=== PATIENT | female | born 1965 | race Caucasian/White ===

== ENCOUNTER → 2016-03-29 19:15 | Outpatient (CLI) | payer MEDICARE, MEDICAID ==
[2012-06-08 03:24] VITALS: BMI 34.5
[2016-03-29 19:51] LABS: AMYLASE - SERUM 299 U/L (25-115); LIPASE 191 U/L (73-393)
== END | disposition home or self-care (01) ==
LOC: D.LABREF 19:15
PROVIDERS: Family Medicine
DX: R10.11 Right upper quadrant pain (principal); N39.0 Urinary tract infection, site not specified

== ENCOUNTER 2016-06-17 12:08 | Emergency (ER) | payer MEDICARE ==
[2012-06-08 03:24] VITALS: BMI 34.5
== END 2016-06-17 14:35 | disposition home or self-care (01) ==
LOC: D.ER 12:08
DX: S93.401A Sprain of unspecified ligament of right ankle, initial encounter (principal); X58.XXXA Exposure to other specified factors, initial encounter; Y93.89 Activity, other specified; Y92.410 Unspecified street and highway as the place of occurrence of the external cause; F17.200 Nicotine dependence, unspecified, uncomplicated

== ENCOUNTER 2017-03-09 22:09 | Emergency (ER) | payer MEDICARE, MEDICAID ==
[2012-06-08 03:24] VITALS: BMI 34.5
[2017-03-09 23:05] LABS: BASOPHILS 0.3 % (0-2); EOSINOPHILS 7.7 % (0-7); HEMATOCRIT 36.9 % (36.0-48.0); HEMOGLOBIN 12.5 g/dL (12-16); LYMPHOCYTES 35.1 % (15-50); MCH 31.1 pg (26.0-34.0); MCHC 33.9 g/dL (31.0-37.0); MCV 91.8 fL (80.0-100.0); MEAN PLATELET VOLUME 9.7 fL (7.4-10.4); MONOCYTES 4.1 % (2-11); NEUTROPHILS 52.8 % (40-80); RBC 4.02 10x6/uL (4.00-5.40); RDW 15.3 % (11.5-14.5); WBC 5.8 10x3/uL (4.8-10.8)
[2017-03-09 23:14] LABS: PLATELET COUNT 305 10x3/uL (130-400)
[2017-03-09 23:23] LABS: ALBUMIN 3.1 g/dL (3.4-5.0); ANION GAP 15.1 mmol/L (8-16); BILIRUBIN - TOTAL 0.21 mg/dL (0.2-1.3); CALCIUM 8.8 mg/dL (8.5-10.1); CARBON DIOXIDE 24.9 mmol/L (21.0-32.0); CREATININE - SERUM 1.2 mg/dL (0.6-1.3); PROTEIN - SERUM 6.5 g/dL (6.4-8.2)
== END 2017-03-09 23:57 | disposition home or self-care (01) ==
LOC: D.ER 22:09
PROVIDERS: Family Medicine
DX: Z86.59 Personal history of other mental and behavioral disorders (principal)

== ENCOUNTER 2017-03-13 17:41 | Emergency (ER) | payer MEDICARE, MEDICAID ==
[2012-06-08 03:24] VITALS: BMI 34.5
== END 2017-03-13 21:58 | disposition home or self-care (01) ==
LOC: D.ER 17:41
DX: S39.92XA Unspecified injury of lower back, initial encounter (principal); W19.XXXA Unspecified fall, initial encounter; Y93.89 Activity, other specified; Y92.019 Unspecified place in single-family (private) house as the place of occurrence of the external cause; F17.200 Nicotine dependence, unspecified, uncomplicated

== ENCOUNTER 2017-05-01 16:12 | Emergency (ER) | payer MEDICARE, MEDICAID ==
[2012-06-08 03:24] VITALS: BMI 34.5
[2017-05-01 16:46] LABS: BASOPHILS 0.6 % (0-2); EOSINOPHILS 5.9 % (0-7); HEMATOCRIT 34.7 % (36.0-48.0); LYMPHOCYTES 29.4 % (15-50); MCH 31.1 pg (26.0-34.0); MCHC 34.6 g/dL (31.0-37.0); MCV 89.9 fL (80.0-100.0); MEAN PLATELET VOLUME 10.3 fL (7.4-10.4); MONOCYTES 7.2 % (2-11); NEUTROPHILS 56.9 % (40-80); PLATELET COUNT 320 10x3/uL (130-400); RBC 3.86 10x6/uL (4.00-5.40); RDW 14.3 % (11.5-14.5); WBC 5.4 10x3/uL (4.8-10.8)
[2017-05-01 17:08] LABS: ALBUMIN 3.2 g/dL (3.4-5.0); ANION GAP 16.4 mmol/L (8-16); BILIRUBIN - TOTAL 0.21 mg/dL (0.2-1.3); CALCIUM 9.3 mg/dL (8.5-10.1); CARBON DIOXIDE 20.1 mmol/L (21.0-32.0); CREATININE - SERUM 1.2 mg/dL (0.6-1.3); POTASSIUM - SERUM 3.5 mmol/L (3.5-5.1); PROTEIN - SERUM 7.4 g/dL (6.4-8.2)
[2017-05-01 18:38] LABS: APPEARANCE CLEAR (CLEAR); BILIRUBIN NEGATIVE (NEGATIVE); COLOR YELLOW (YELLOW); GLUCOSE NEGATIVE (NEGATIVE); KETONE NEGATIVE (NEGATIVE); NITRITE POSITIVE (NEGATIVE); PROTEIN NEGATIVE (NEGATIVE); UROBILINOGEN NORMAL (NORMAL)
[2017-05-01 18:39] LABS: BACTERIA MANY /hpf (NONE SEEN); EPITHELIAL CELLS 0-5 /hpf (0-5); RED CELLS - URINE 0-5 /hpf (0-5)
[2017-05-01 18:44] LABS: UDS - AMPHET POSITIVE QUAL (NEGATIVE); UDS - BARB NEGATIVE QUAL (NEGATIVE); UDS - BENZO NEGATIVE QUAL (NEGATIVE); UDS - COCAINE POSITIVE QUAL (NEGATIVE); UDS - OPIATE NEGATIVE QUAL (NEGATIVE); UDS - PCP NEGATIVE QUAL (NEGATIVE); UDS - THC NEGATIVE QUAL (NEGATIVE)
== END 2017-05-02 08:08 | disposition home or self-care (01) ==
LOC: D.ER 16:12
PROVIDERS: Emergency Medicine
DX: F41.9 Anxiety disorder, unspecified (principal); F23 Brief psychotic disorder; F15.10 Other stimulant abuse, uncomplicated; F14.10 Cocaine abuse, uncomplicated; F17.200 Nicotine dependence, unspecified, uncomplicated

== ENCOUNTER 2017-11-15 00:21 | Emergency (ER) | payer MEDICARE, MEDICAID ==
[~2017-11-15] VITALS: Ht 170.2 cm; Wt 83.6 kg
[2017-11-15 00:24] VITALS: Ht 170.2 cm; Wt 83.6 kg
[2017-11-15 00:44] LABS: BASOPHILS 0.5 % (0-2); EOSINOPHILS 8.4 % (0-7); HEMATOCRIT 34.9 % (36.0-48.0); HEMOGLOBIN 11.7 g/dL (12-16); IMMATURE GRANULOCYTES 0.3 % (0-5); LYMPHOCYTES 45.2 % (15-50); MCH 31.2 pg (26.0-34.0); MCHC 33.5 g/dL (31.0-37.0); MCV 93.1 fL (80.0-100.0); MEAN PLATELET VOLUME 10.1 fL (7.4-10.4); MONOCYTES 11.2 % (2-11); NEUTROPHILS 34.4 % (40-80); RBC 3.75 10x6/uL (4.00-5.40); WBC 3.9 10x3/uL (4.8-10.8)
[2017-11-15 00:45] LABS: PLATELET COUNT 225 10x3/uL (130-400)
[2017-11-15 01:00] LABS: ALBUMIN 2.5 g/dL (3.4-5.0); ALKALINE PHOSPHATASE 100 U/L (46-116); ALT (SGPT) 87 U/L (10-68); BILIRUBIN - TOTAL 0.16 mg/dL (0.2-1.3); CALC OSMOLALITY 288 mosm/kg (275-300); CALCIUM 8.4 mg/dL (8.5-10.1); CARBON DIOXIDE 25.7 mmol/L (21.0-32.0); CHLORIDE - SERUM 109 mmol/L (98-107); CREATININE - SERUM 1.7 mg/dL (0.6-1.3); GLUCOSE 123 mg/dL (74-106); POTASSIUM - SERUM 3.8 mmol/L (3.5-5.1); PROTEIN - SERUM 5.9 g/dL (6.4-8.2); SODIUM 143 mmol/L (136-145); UREA NITROGEN 22 mg/dL (7-18); eGFR NON AFRICAN AMERICAN 34 mL/min (90-120)
[2017-11-15 01:09] LABS: CKMB 1.2 U/L (0.0-3.6); CREATINE KINASE 38 UL (21-215)
[2017-11-15 01:10] LABS: TROPONIN-I < 0.017 ng/mL (0.000-0.060)
[2017-11-15 02:54] LABS: UDS - AMPHET POSITIVE QUAL (NEGATIVE); UDS - BARB NEGATIVE QUAL (NEGATIVE); UDS - BENZO NEGATIVE QUAL (NEGATIVE); UDS - COCAINE NEGATIVE QUAL (NEGATIVE); UDS - OPIATE NEGATIVE QUAL (NEGATIVE); UDS - PCP NEGATIVE QUAL (NEGATIVE); UDS - THC NEGATIVE QUAL (NEGATIVE)
[2017-11-15 02:57] LABS: APPEARANCE CLOUDY (CLEAR); COLOR YELLOW (YELLOW); NITRITE NEGATIVE (NEGATIVE)
[2017-11-15 02:58] LABS: BACTERIA MANY /hpf (NONE SEEN); BILIRUBIN NEGATIVE (NEGATIVE); EPITHELIAL CELLS RARE /hpf (0-5); GLUCOSE NEGATIVE (NEGATIVE); KETONE SMALL mg/dL (NEGATIVE); PROTEIN TRACE mg/dL (NEGATIVE); UROBILINOGEN NORMAL (NORMAL); WHITE CELLS - URINE >50 /hpf (0-5)
[2017-11-15 03:35] VITALS: BP 111/47
== END 2017-11-15 03:36 | disposition home or self-care (01) ==
LOC: D.ER 00:21
PROVIDERS: Emergency Medicine
DX: R53.83 Other fatigue (principal); R53.1 Weakness; R06.02 Shortness of breath; F17.200 Nicotine dependence, unspecified, uncomplicated

== ENCOUNTER 2018-12-01 22:10 | Inpatient (IN) | payer MEDICARE, MEDICAID ==
[~2018-12-01] VITALS: Ht 170.2 cm; Wt 88.7 kg
[2018-12-01 23:03] VITALS: BP 171/81
[2018-12-01 23:16] LABS: BASOPHILS 0.6 % (0-2); EOSINOPHILS 7.8 % (0-7); HEMATOCRIT 37.9 % (36.0-48.0); HEMOGLOBIN 12.5 g/dL (12-16); LYMPHOCYTES 18.4 % (15-50); MCH 30.3 pg (26.0-34.0); MCV 91.8 fL (80.0-100.0); MEAN PLATELET VOLUME 10.6 fL (7.4-10.4); MONOCYTES 6.8 % (2-11); NEUTROPHILS 66.4 % (40-80); RBC 4.13 10x6/uL (4.00-5.40); RDW 13.2 % (11.5-14.5); WBC 5.2 10x3/uL (4.8-10.8)
[2018-12-01 23:21] LABS: PLATELET COUNT 292 10x3/uL (130-400)
[2018-12-01 23:29] LABS: PROTIME 12.7 SECONDS (11.6-15.0)
[2018-12-01 23:29] LABS: UDS - AMPHET POSITIVE QUAL (NEGATIVE); UDS - BARB NEGATIVE QUAL (NEGATIVE); UDS - BENZO NEGATIVE QUAL (NEGATIVE); UDS - COCAINE NEGATIVE QUAL (NEGATIVE); UDS - OPIATE POSITIVE QUAL (NEGATIVE); UDS - PCP NEGATIVE QUAL (NEGATIVE); UDS - THC NEGATIVE QUAL (NEGATIVE)
[2018-12-01 23:30] LABS: APTT 36.1 SECONDS (22.8-39.4)
[2018-12-01 23:32] LABS: APPEARANCE CLEAR (CLEAR); BILIRUBIN NEGATIVE (NEGATIVE); COLOR YELLOW (YELLOW); GLUCOSE NEGATIVE (NEGATIVE); KETONE NEGATIVE (NEGATIVE); NITRITE NEGATIVE (NEGATIVE); PROTEIN NEGATIVE (NEGATIVE); UROBILINOGEN NORMAL (NORMAL)
--- NOTE | 2018-12-01 23:32 | NUR ---
PT MOVED TO T2. PT'S SPOUSE CALLED AND STATES IS "STUCK ON THE OTHER SIDE OF [place], BUT A FRIEND TOLD ME SHE TOOK A LOT OF BACLOFEN."
[2018-12-01 23:33] LABS: BACTERIA FEW /hpf (NEGATIVE); CALCIUM OXALATE CRYSTALS 0-5 /hpf (NONE SEEN); EPITHELIAL CELLS 0-5 /hpf (0-5); RED CELLS - URINE 0-5 /hpf (0-5)
--- NOTE | 2018-12-01 23:35 | NUR ---
SPOKE TO BROOK AT [facility]. INSTRUCTED TO ORDER TOX SCREENS WITH SYMPTOMATIC AND SUPPORTIVE CARE FOR BACLOFEN.
--- NOTE | 2018-12-01 23:35 | NUR ---
PT INTUBATED 7.5 ET 23 @[facility]IP.
[2018-12-01 23:39] LABS: ALBUMIN 3.2 g/dL (3.4-5.0); ALKALINE PHOSPHATASE 141 U/L (46-116); ALT (SGPT) 48 U/L (10-68); BILIRUBIN - TOTAL 0.33 mg/dL (0.2-1.3); CALC OSMOLALITY 283 mosm/kg (275-300); CALCIUM 8.9 mg/dL (8.5-10.1); CARBON DIOXIDE 29.2 mmol/L (21.0-32.0); CHLORIDE - SERUM 106 mmol/L (98-107); CKMB 3.4 U/L (0.0-3.6); CREATINE KINASE 156 UL (21-215); CREATININE - SERUM 1.2 mg/dL (0.6-1.3); GLUCOSE 146 mg/dL (74-106); MAGNESIUM - SERUM 1.8 mg/dL (1.8-2.4); PROTEIN - SERUM 6.7 g/dL (6.4-8.2); SODIUM 141 mmol/L (136-145); THYROID STIMULATING HORMONE 1.36 uIU/mL (0.36-3.74); TROPONIN-I < 0.017 ng/mL (0.000-0.060); UREA NITROGEN 13 mg/dL (7-18); eGFR NON AFRICAN AMERICAN 50 mL/min (90-120)
[2018-12-02] VITALS (29 sets, daily range): BP systolic 97–204; BP diastolic 52–124; Ht 170.2 cm; Wt 88.7 kg
[2018-12-02 00:21] LABS: HCG URINE NEGATIVE (NEGATIVE)
--- NOTE | 2018-12-02 00:35 | NUR ---
PT RECIEVED FROM ED VIA STRETCHER. TRANSFERED TO ICU BED 2307. MONITOR EQUIP ESTABLISHED. HYPERTENSIVE. VENT PER ETT. NG TUBE REMOVED DUE TO BEING DISPLACED. PIV L FOREARM WITH NS AND PROPOFOL INFUSING.
--- NOTE | 2018-12-02 03:55 | NUR ---
RECIEVED CALL FROM [facility]. UPDATE GIVEN.
[2018-12-02 05:18] LABS: BASOPHILS 0.2 % (0-2); EOSINOPHILS 3.8 % (0-7); HEMATOCRIT 37.9 % (36.0-48.0); HEMOGLOBIN 12.6 g/dL (12-16); IMMATURE GRANULOCYTES 0.2 % (0-5); LYMPHOCYTES 24.3 % (15-50); MCH 30.3 pg (26.0-34.0); MCHC 33.2 g/dL (31.0-37.0); MCV 91.1 fL (80.0-100.0); MEAN PLATELET VOLUME 10.8 fL (7.4-10.4); MONOCYTES 6.8 % (2-11); NEUTROPHILS 64.7 % (40-80); PLATELET COUNT 305 10x3/uL (130-400); RBC 4.16 10x6/uL (4.00-5.40); RDW 13.5 % (11.5-14.5); WBC 4.7 10x3/uL (4.8-10.8)
[2018-12-02 05:43] LABS: ALBUMIN 2.9 g/dL (3.4-5.0); ANION GAP 10.7 mmol/L (8-16); BILIRUBIN - TOTAL 0.38 mg/dL (0.2-1.3); CALCIUM 8.8 mg/dL (8.5-10.1); CARBON DIOXIDE 25.2 mmol/L (21.0-32.0); MAGNESIUM - SERUM 1.8 mg/dL (1.8-2.4); PHOSPHOROUS 2.6 mg/dL (2.5-4.9); PROTEIN - SERUM 6.2 g/dL (6.4-8.2)
[2018-12-02 05:47] LABS: POTASSIUM - SERUM 3.9 mmol/L (3.5-5.1)
--- NOTE | 2018-12-02 06:15 | NUR ---
PT BATHED AND LINEN CHANGED.
--- NOTE | 2018-12-02 07:30 | NUR ---
REPORT RECEIVED. PT ON VENT. SETTINGS PER RT. PT HAS OGT TO LIS. KENDALL IN PLACE. PT HAS AN IV IN HER RIGHT WRIST AND LEFT FOREARM. PROPOFOL AND 1/2NS INFUSING. HEAD TO TOE ASSESSMENT PERFORMED. VSS. WILL CONTINUE TO MONITOR.
--- NOTE | 2018-12-02 09:40 | NUR ---
SEDATION TURNED OFF PER DR MONTELONGO. WILL MONITOR. PT DIDN'T RESPOND TO STERNAL RUB.
--- NOTE | 2018-12-02 11:00 | NUR ---
PT OFF SEDATION. NOT RESPONDING TO STERNAL RUB. SEDATION TURNED OFF EARLIER. NOT RESTARTED. REASSESSMENT DONE. PUPILS STILL FIXED. VSS. WILL CONTINUE TO MONITOR.
--- NOTE | 2018-12-02 13:18 | NUR ---
UNABLE TO PROVIDE PT HISTORY. ONLY ABLE TO SAY THAT PT HAS A HISTORY OF REFLUX AND DEPRESSION. UNABLE TO TELL ME WHAT MEDICATIONS PT USES. SAYS THEY USE [facility].
--- NOTE | 2018-12-02 14:45 | NUR ---
CHG BATH GIVEN TO PT. FAN IN ROOM. HYDRALAZINE GIVEN PER PARAMETERS FOR HIGH BP. WILL MONITOR.
--- NOTE | 2018-12-02 15:30 | NUR ---
REASSESSMENT COMPLETED. VSS.
--- NOTE | 2018-12-02 17:03 | NUR ---
CALLED DR ROSE ABOUT PT'S BP STAYING ELEVATED AND 10MG DOSE OF HYDRALAZINE. HE STATED TO MAKE SURE WITH PHARMACY WE COULD GIVE HIGHER DOSE NOW. CALLING PHARMACY NOW.
--- NOTE | 2018-12-02 18:50 | NUR ---
DR ROSE NOTIFIED OF PT WAKING UP AGGITATED, COMBATIVE AND UNABLE TO REORIENT. PROPOFOL GTT RESTARTED. PT REMAINS ON VENTILATOR AND RESTRAINED.
--- NOTE | 2018-12-02 22:00 | NUR ---
PT AWAKENED SUDDENLY AND IS PULLING AT LINES AND ATTEMPTING TO GET OOB. PROPOFOL INCREASED.
[2018-12-03] VITALS (24 sets, daily range): BP systolic 118–175; BP diastolic 55–100
--- NOTE | 2018-12-03 03:30 | NUR ---
PT BATHED AND COMPLETE LINEN CHANGE. TOLERATED WELL
[2018-12-03 04:07] LABS: BASOPHILS 0.1 % (0-2); EOSINOPHILS 1.9 % (0-7); HEMATOCRIT 42.2 % (36.0-48.0); HEMOGLOBIN 13.8 g/dL (12-16); IMMATURE GRANULOCYTES 0.1 % (0-5); LYMPHOCYTES 12.4 % (15-50); MCH 30.2 pg (26.0-34.0); MCHC 32.7 g/dL (31.0-37.0); MCV 92.3 fL (80.0-100.0); MEAN PLATELET VOLUME 10.7 fL (7.4-10.4); MONOCYTES 5.8 % (2-11); NEUTROPHILS 79.7 % (40-80); PLATELET COUNT 316 10x3/uL (130-400); RBC 4.57 10x6/uL (4.00-5.40); RDW 14.1 % (11.5-14.5)
[2018-12-03 04:12] LABS: WBC 8.8 10x3/uL (4.8-10.8)
[2018-12-03 04:24] LABS: ALBUMIN 2.8 g/dL (3.4-5.0); BILIRUBIN - TOTAL 0.36 mg/dL (0.2-1.3); CALCIUM 9.2 mg/dL (8.5-10.1); CARBON DIOXIDE 25.7 mmol/L (21.0-32.0); MAGNESIUM - SERUM 1.7 mg/dL (1.8-2.4); POTASSIUM - SERUM 3.7 mmol/L (3.5-5.1); PROTEIN - SERUM 6.4 g/dL (6.4-8.2)
[2018-12-03 04:27] LABS: PHOSPHOROUS 3.6 mg/dL (2.5-4.9)
--- NOTE | 2018-12-03 07:30 | NUR ---
REPORT RECEIVED. PT ON VENT, PER RT SETTINGS. HAD OGT. PT HAS KENDALL. SHE IS IN RESTRAINTS. SHE HAS A LEFT FOREARM IV WITH 1/2NS AND PROPOFOL INFUSING. WHEN SEDATION IS TURNED DOWN, PT STARTS FIGHTING HER RESTRAINTS AND RAISES HER LEGS AND KICKS. ASSESSMENT DONE AND DOCUMENTED. VSS. WILL CONTINUE TO MONITOR.
--- NOTE | 2018-12-03 09:28 | NUR ---
PT AWAKE AND FIGHTING RESTRAINTS. KICKING LEGS IN AIR. REPOSITIONED IN BED. BED ALARM ON.
--- NOTE | 2018-12-03 09:47 | NUR ---
NUTRITION F/U CHART REVIEWED. PT REMAINS ON VENT. WILL CONTINUE TO MONITOR PT PROGRESS, PROVIDE DIET WHEN ORDERED OR ASSIST WITH NUTRITION SUPPORT IF NEEDED. RD FOLLOWING
--- NOTE | 2018-12-03 11:00 | NUR ---
DR MONTELONGO ROUNDED ON PT. WOKE PT. PT STARTED KICKING. STATED HE WOULD BE ORDERING VERSED TO HELP KEEP HER CALM WHERE SHE ISN'T KICKING AND FIGHTING THE VENT. WILL FOLLOW UP.
--- NOTE | 2018-12-03 11:30 | NUR ---
PT EXTUBATED. RESTRAINTS RELEASED. PT INSTRUCTED TO LEAVE NG TUBE ALONE. WOULD PULL IF PASS SWALLOW EVAL. VSS. WILL CONTINUE TO MONITOR.
[2018-12-03 11:39] LABS: APPEARANCE CLEAR (CLEAR); BILIRUBIN NEGATIVE (NEGATIVE); COLOR YELLOW (YELLOW); GLUCOSE NEGATIVE (NEGATIVE); KETONE NEGATIVE (NEGATIVE); NITRITE NEGATIVE (NEGATIVE); PROTEIN NEGATIVE (NEGATIVE); UROBILINOGEN NORMAL (NORMAL)
[2018-12-03 11:40] LABS: BACTERIA FEW /hpf (NEGATIVE); EPITHELIAL CELLS NSEEN /hpf (0-5); RED CELLS - URINE 0-5 /hpf (0-5); WHITE CELLS - URINE 0-5 /hpf (NEGATIVE)
--- NOTE | 2018-12-03 13:41 | NUR ---
PT RESTING QUIETLY. VSS. WILL CONTINUE TO MONITOR.
--- NOTE | 2018-12-03 17:30 | NUR ---
VSS. PT REPOSITIONED. ORAL CARE DONE.
--- NOTE | 2018-12-03 17:41 | MORECARE ---
CASE MANAGEMENT DISCHARGE SUMMARY PATIENT: RUDDY LUDWIG UNIT: [id number] ADM DATE: 12/01/18 AGE: 53 : 69 SEX: F ROOM/BED: D.2307 AUTHOR: ROBINA BARDALES PHYSICIAN: REFERRING PHYSICIAN: TERESA NUÑEZ MD DATE OF SERVICE: 12/03/18 Discharge Plan Patient Name: RUDDY LUDWIG [facility] [facility] 1965 Planned Disposition: Home Anticipated Discharge Date: Discharge Date: Expected LOS: Initial Reviewer: [email or web address] Initial Review Date: 12/03/2018 Generated: 12/03/18 6:41 pm DCPIA - Discharge Planning Initial Assessment Updated by [email or web address]: Mara Coleman on 12/03/18 5:40 pm * Is the patient Alert and Oriented? No * How many steps to enter\exit or inside your home? 4-20 * PCP NO PCP - PHYSICIAN MOST FAMILAR WITH PATIENT IS DR. NOLASCO @ [facility] * Pharmacy [place] * Preadmission Environment Home with Family * ADLs Independent * Equipment None * List name and contact numbers for known caregivers / representatives who currently or will assist patient after discharge: SHAAN MONET - SPOUSE - [phone] * Community resources currently utilized None * Additional services required to return to the preadmission environment? No * Can the patient safely return to the preadmission environment? Yes * Has this patient been hospitalized within the prior 30 days at any hospital? No Patient Name: RUDDY LUDWIG Page [phone] at 1741 All edits/amendments must be made on the electronic document DICTATION DATE: 12/03/181740 L TACKER: TERI 12/03/181740 RPT#: [id number] DC DATE: STATUS: ADM IN [facility] [address] [place] [address] END OF REPORT
--- NOTE | 2018-12-03 17:49 | MORECARE ---
CASE MANAGEMENT DISCHARGE SUMMARY PATIENT: RUDDY LUDWIG UNIT: [id number] ADM DATE: 12/01/18 AGE: 53 : 69 SEX: F ROOM/BED: D.9862 AUTHOR: JEFFY,DOC PHYSICIAN: REFERRING PHYSICIAN: TERESA NUÑEZ MD DATE OF SERVICE: 12/03/18 Discharge Plan Patient Name: RUDDY LUDWIG Facility: [facility]:[place] : 1965 Planned Disposition: Home Anticipated Discharge Date: Discharge Date: Expected LOS: Initial Reviewer: [email or web address] Initial Review Date: 12/03/2018 Generated: 12/03/18 6:49 pm Comments DCP- Discharge Planning Updated by [email or web address]: Mara Coleman on 12/03/18 4:[address] Patient Name: RUDDY LUDWIG Admission Status: ER Accout number: [id number] Admission Date: 12-01-2018 : 1965 Admission Diagnosis:UNSPECIFIED COMA Attending: TERESA NUÑEZ Current LOS: 2 Anticipated DC Date: Planned Disposition: Home Primary Insurance: MEDICARE A & B Discharge Planning Comments: CM attempted to met with patient to complete initial dc planning assessment. Patient is currently on vent sedated. CM spoke with patient's spouse Oneal. CM educated Oneal on the CM role and verbal consent given by patient to complete assessment. Patient lives at home with her where she is independent with her care. At discharge patient plans to return home and feels this is a safe discharge. Oneal states that the patient has a history of psych issues and has been seen by Dr. Nolasco @ [facility]. CM discussed availability of home health, rehab services, and medical equipment. Family will transport patient home upon discharge. Oneal denied any known discharge needs at this time. CM will continue to follow and will assist as needed with dc plans/needs. Parish Nurse: Mara Coleman DCPIA - Discharge Planning Initial Assessment Updated by [email or web address]: Mara Coleman on 12/03/18 5:40 pm * Is the patient Alert and Oriented? No * How many steps to enter\exit or inside your home? 4-20 * PCP NO PCP - PHYSICIAN MOST FAMILAR WITH PATIENT IS DR. NOLASCO @ [facility] * Pharmacy [place] * Preadmission Environment Home with Family * ADLs Independent * Equipment None * List name and contact numbers for known caregivers / representatives who currently or will assist patient after discharge: SHAAN MONET - [facility] - [phone] * Community resources currently utilized None * Additional services required to return to the preadmission environment? No * Can the patient safely return to the preadmission environment? Yes * Has this patient been hospitalized within the prior 30 days at any hospital? No Last DP export: 12/03/18 4:41 p Patient Name: RUDDY LUDWIG Page 31634 at 1749 All edits/amendments must be made on the electronic document DICTATION DATE: 12/03/181748 SUPERVISOR NATURAL GAS PLANT: TERI 12/03/181748 RPT#: [id number] DC DATE: STATUS: ADM IN [facility] [address] [place] [address] END OF REPORT
--- NOTE | 2018-12-03 18:21 | NUR ---
REASSESSMENT COMPLETED. VSS.
--- NOTE | 2018-12-03 19:44 | NUR ---
PATIENT RESTLESS, UNABLE TO KEEP CALM DESPITE INCREASE IN DIPRIVAN, TACHYPNEIC, TACHYCARDIC, KICKING FEET UP IN THE AIR. PRN VERSED GIVEN, WILL CONTINUE TO MONITOR.
--- NOTE | 2018-12-03 20:14 | NUR ---
CALLED, OBTAINED, UPDATE GIVEN. STATES HE WILL COME TOMORROW AT LUNCH TIME.
--- NOTE | 2018-12-03 20:56 | NUR ---
PAGED STEFAN GRUBBS ART EDUCATION PROFESSOR. 2124 SPOKE TO STEFAN GRUBBS REGARDING PATIENT'S CURRENT STATUS, INFORMED HIM OF TACHYCARDIA, INCREASED RR, AND THE NEED TO INCREASE SEDATION AND VERSED GIVEN. PER Marie GRUBBS AVOID OVERSEDATION WITH VERSED.
--- NOTE | 2018-12-03 21:00 | NUR ---
CALLED, ASKED IF HE COULD STAY THE NIGHT IN HIS 'S ROOM. INFORMED HIM OF VISITING HOURS, STATED "I AM NOT HAPPY ABOUT THAT" INFORMED HIM THAT HE CAN COME UP AND STAY UNTIL 10 PM AND INFORMED HIM OF NEXT VISITING HOURS. STATED HE WILL COME TO VISIT TOMORROW AT 4 AM.
--- NOTE | 2018-12-03 23:10 | NUR ---
REASSESSMENT COMPLETED PER FLOW SHEET, SEE FOR DETAILS.
[2018-12-04] VITALS (26 sets, daily range): BP systolic 71–177; BP diastolic 38–96
--- NOTE | 2018-12-04 01:00 | NUR ---
REPOSITIONED IN BED. WILL CONTINUE TO MONITOR. 0304 REASSESSMENT COMPLETED PER FLOW SHEET, SEE FOR DETAILS. 0500 REPOSITIONED IN BED. CALM, RESTING ON VENT.
[2018-12-04 04:23] LABS: BASOPHILS 0.2 % (0-2); EOSINOPHILS 0.7 % (0-7); HEMATOCRIT 41.4 % (36.0-48.0); HEMOGLOBIN 13.8 g/dL (12-16); IMMATURE GRANULOCYTES 0.2 % (0-5); LYMPHOCYTES 7.8 % (15-50); MCH 30.5 pg (26.0-34.0); MCHC 33.3 g/dL (31.0-37.0); MCV 91.6 fL (80.0-100.0); MONOCYTES 6.9 % (2-11); NEUTROPHILS 84.2 % (40-80); PLATELET COUNT 341 10x3/uL (130-400); RBC 4.52 10x6/uL (4.00-5.40); RDW 14.2 % (11.5-14.5)
[2018-12-04 04:27] LABS: WBC 12.3 10x3/uL (4.8-10.8)
[2018-12-04 04:39] LABS: ANION GAP 12.9 mmol/L (8-16); BILIRUBIN - TOTAL 0.47 mg/dL (0.2-1.3); CARBON DIOXIDE 25.8 mmol/L (21.0-32.0); CREATININE - SERUM 0.9 mg/dL (0.6-1.3); MAGNESIUM - SERUM 1.9 mg/dL (1.8-2.4); PHOSPHOROUS 4.2 mg/dL (2.5-4.9); POTASSIUM - SERUM 3.7 mmol/L (3.5-5.1); PROTEIN - SERUM 7.1 g/dL (6.4-8.2)
--- NOTE | 2018-12-04 14:55 | NUR ---
0900 AM MEDS GIVEN. NO DISTRESS NOTED. V/S/S. NO CHANGES IN EARLIER ASSESS. WILL CONT TO MONITOR.
--- NOTE | 2018-12-04 14:57 | NUR ---
[address] DR[address] MONTELONGO HERE. SEDATION TURNED OFF UNTIL 1040. PT BECOMING VERY AGITATED AND HR 120'S AND BP 170'S. DR MONTELONGO NOTIFIED AND PRECEDEX DRIP ORDERED.
--- NOTE | 2018-12-04 14:59 | NUR ---
1100 PT BACK ON PREVIOUS VENT SETTINGS AND PREVIOUS SEDATION WITH ADDITION OF PRECEDEX. DR. MONTELONGO STATED TO WEAN PROPOFOL OFF WHILE ON PRECEDEX TOLERATED. WHEN SEDATION OFF PT BECOMES VERY AGITATED AND RESTLESS, KICKING BED RAILS, BUT NOT FOLLOWING COMMANDS OR MAKING ANY PURPOSEFUL MOVEMENTS. WILL CONT. TO MONITOR.
--- NOTE | 2018-12-04 15:04 | NUR ---
1300 PT RESTING. REMAINS ON VENT, SEDATED AND RESTRAINED. WILL CONT TO MONITOR.
--- NOTE | 2018-12-04 16:15 | NUR ---
1500 pt resting. tolerating precedex well. spoke with and discussed inability to wean pt from vent today. Has stated multiple times he would be here to speak with MD but not here today. update given over phone.
--- NOTE | 2018-12-04 17:00 | NUR ---
PT RESTING IN BED. NO NEEDS NOTED AT THIS TIME. WILL CONT TO MONITOR.
--- NOTE | 2018-12-04 19:30 | NUR ---
PT SEDATED, ETT PATENT TO VENT, L PIV INTACT WITH PROPOFOL AND 1/2NS INFUSING, R PIV INTACT WITH PRECEDEX INFUSING, BILAT SWR IN USE, FAIZA PATENT TO BSD, WILL CONT TO MONITOR
--- NOTE | 2018-12-04 21:30 | NUR ---
PT REMAINS SEDATED WITHOUT DISTRESS
--- NOTE | 2018-12-04 23:15 | NUR ---
PT OPENS EYES, SHAKING HEAD, KICKING, TALKED WITH PT, EXPLAINED SHE NEEDED TO STAY CALM, NODS UNDERSTANDING
[2018-12-05] VITALS (24 sets, daily range): BP systolic 80–158; BP diastolic 49–699
--- NOTE | 2018-12-05 01:00 | NUR ---
PT AGITATED AT TIMES, COMBATIVE WITH CARE, VITALS STABLE, WILL CONT TO MONITOR
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
[2018-12-05 04:31] LABS: BASOPHILS 0.2 % (0-2); HEMATOCRIT 36.3 % (36.0-48.0); HEMOGLOBIN 11.8 g/dL (12-16); IMMATURE GRANULOCYTES 0.2 % (0-5); LYMPHOCYTES 20.3 % (15-50); MCH 29.8 pg (26.0-34.0); MCHC 32.5 g/dL (31.0-37.0); MCV 91.7 fL (80.0-100.0); MEAN PLATELET VOLUME 10.9 fL (7.4-10.4); MONOCYTES 9.3 % (2-11); PLATELET COUNT 281 10x3/uL (130-400); RBC 3.96 10x6/uL (4.00-5.40); RDW 14.2 % (11.5-14.5)
[2018-12-05 04:39] LABS: WBC 6.6 10x3/uL (4.8-10.8)
[2018-12-05 04:48] LABS: ALBUMIN 2.5 g/dL (3.4-5.0); ANION GAP 16.2 mmol/L (8-16); BILIRUBIN - TOTAL 0.51 mg/dL (0.2-1.3); CALCIUM 9.1 mg/dL (8.5-10.1); CARBON DIOXIDE 21.5 mmol/L (21.0-32.0); MAGNESIUM - SERUM 1.8 mg/dL (1.8-2.4); POTASSIUM - SERUM 3.7 mmol/L (3.5-5.1); PROTEIN - SERUM 6.1 g/dL (6.4-8.2)
[2018-12-05 04:50] LABS: CREATININE - SERUM 1.3 mg/dL (0.6-1.3)
--- NOTE | 2018-12-05 05:00 | NUR ---
PT AGITATED AND COMBATIVE WHEN AROUSED, CONT WITH SEDATION, VITALS STABLE, WILL CONT TO MONITOR
--- NOTE | 2018-12-05 07:00 | NUR ---
BEDISDE REPORT RECEIVED. PT COMBATIVE WHEN AWAKE. ASSESSMENT COMPLETED PER FLOWSHEET, SEE FLOWSHEET FOR ADDITIONAL INFORMATION. VSS. NO NEEDS NOTED AT THIS TIME. WILL CONT TO MONITOR.
--- NOTE | 2018-12-05 09:00 | NUR ---
PT COMBATIVE AND RESPONSIVE, SHAKING HER HEAD YES AND NO WHEN ASKED A QUESTION. PLANNING ON EXTUBAATION.
--- NOTE | 2018-12-05 09:10 | NUR ---
DR JAYDA ALFARO GIVEN UDPATE PT AGGIGATED AGGRESSIVE TOWARDS NURSES BUT FOLLOWING COMMANDS AT THIS TIME. SHAKES HER HEAD YES SHE UNDERSTANDS NURSE INSTRUCTIONS TO REMAIN CALM AT THIS TIME. T ORDERS TO D.C. PROPOFOL AT THIS TIME AND SWITCH PATIENT TO CPAP TRIAL FOR 30 MINUTES AND CALL WITH NUMBERS TO POTENTIALLY EXTUBATE. GAYLE RT GIVEN UPDATE, ORDERS IN PLACE. NURSE EXPLAINED TO PT IN GREAT LENGTH PROCESS, EXPECTATIONS AND NEW ORDERS. STATED UNDERSTANDING. CPAP TRIAL ADM.
--- NOTE | 2018-12-05 09:43 | NUR ---
NUTRITION F/U CHART REVIEWED. NURSING REPORTS PT OFF SEDATION FOR POSSIBLE EXTUBATION. IF UNABLE TO EXTUBATE, RECOMMEND PULMOCARE TUBE FEEDS WITH GOAL RATE 45 CC/HR. RD FOLLOWING
--- NOTE | 2018-12-05 10:10 | NUR ---
PT EXTUBATED VIA RT PER ORDER. PT TOLERATED WELL. AT BEDSIDE AFTER EXTUBATION. VSS. NO NEEDS OR DISTRESS NOTED AT THIS TIME. WILL CONT TO MONITOR.
--- NOTE | 2018-12-05 11:00 | NUR ---
CHG BEDBATH AND ORAL CARE GIVEN. COMPLETE BED LINEN CHANGED. PAPER SCRUBS GIVEN TO PT. NO NEEDS OR DISTRESS NOTED AT THIS TIME.
--- NOTE | 2018-12-05 11:16 | NUR ---
DR KENNEDY NOTIFIED AND SITTER ORDERED. SITTER AT BEDSIDE. NOTIFIED CHARGE NURSE AND ATTNEDING IN REGARDS TO ASSESSMENT FINDINGS. RESOURCES GIVEN TO PT AND SAFETY PLAN INITIATED.
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
--- NOTE | 2018-12-05 13:00 | NUR ---
PT GIVEN HONEY THICK LIQUIDS. NO DISTRESS NOTED. VSS. WILL CONT TO MONITOR.
--- NOTE | 2018-12-05 15:00 | NUR ---
PT DID OWN ORAL CARE. PT IN BED WATCHING TV WITH A ONE ON ONE SITTER. NO NEEDS OR DISTRESS NOTED AT THIS TIME. VSS. WILL CONT TO MONITOR.
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
--- NOTE | 2018-12-05 19:00 | NUR ---
PT ASSESSMENT COMPLETED AT THIS TIME, NO CHANGES NOTED FRON NURSE REPORT
--- NOTE | 2018-12-05 21:00 | NUR ---
PT RESTING IN BED WATCHING TV, NO DISTRES NOTED
--- NOTE | 2018-12-05 23:00 | NUR ---
PT REASSESSMENT COMPLETED AT THIS TIME, NO CHANGES NOTED
[2018-12-06] VITALS (9 sets, daily range): BP systolic 147–169; BP diastolic 76–97
--- NOTE | 2018-12-06 02:23 | NUR ---
pt resting watching TV, no distress noted, no complaints at this time.
--- NOTE | 2018-12-06 03:00 | NUR ---
PT REASSESSMENT COMPLETED AT THIS TIME, NO CHANGES NOTED
--- NOTE | 2018-12-06 05:00 | NUR ---
PT WATCHING NO DISTRESS NOTED, WILL CONT. TO MONITOR
[2018-12-06 05:08] LABS: BASOPHILS 0.2 % (0-2); EOSINOPHILS 7.8 % (0-7); HEMOGLOBIN 12.3 g/dL (12-16); IMMATURE GRANULOCYTES 0.2 % (0-5); LYMPHOCYTES 24.2 % (15-50); MCH 29.9 pg (26.0-34.0); MCHC 32.4 g/dL (31.0-37.0); MCV 92.2 fL (80.0-100.0); MEAN PLATELET VOLUME 11.1 fL (7.4-10.4); MONOCYTES 10.7 % (2-11); NEUTROPHILS 56.9 % (40-80); PLATELET COUNT 334 10x3/uL (130-400); RBC 4.12 10x6/uL (4.00-5.40); RDW 13.9 % (11.5-14.5); WBC 5.8 10x3/uL (4.8-10.8)
[2018-12-06 05:29] LABS: ALBUMIN 2.7 g/dL (3.4-5.0); ANION GAP 13.6 mmol/L (8-16); BILIRUBIN - TOTAL 0.52 mg/dL (0.2-1.3); CALCIUM 8.7 mg/dL (8.5-10.1); CARBON DIOXIDE 23.8 mmol/L (21.0-32.0); MAGNESIUM - SERUM 2.2 mg/dL (1.8-2.4); PHOSPHOROUS 3.9 mg/dL (2.5-4.9); POTASSIUM - SERUM 3.4 mmol/L (3.5-5.1); PROTEIN - SERUM 6.9 g/dL (6.4-8.2)
--- NOTE | 2018-12-06 09:04 | NUR ---
DR ROSE AND DR MONTELONGO AT BEDSIDE. AGREE PT STABLE TO GO TO INPATIENT PSYCH CARE TODAY.
--- NOTE | 2018-12-06 10:05 | NUR ---
KENDALL CATHETER REMOVED, TIP INTACT. CALLED TO CHECK ON PT AND GET UPDATE. LET HIM KNOW WORKING ON GETTING PATIENT SENT OUT TO PSYCHIATRIC CARE FACILITY. REQUESTED [facility], LET HIM KNOW THAT WE CAN LET THE TRANSFER CENTER KNOW THAT THE PATIENT (AND ) HAVE REQUESTED THAT FACILITY, BUT NO GUARANTEE THAT WILL BE THE FACILITY THAT ACCEPTS. TRANSFER CENTER HAS BEEN NOTIFIED OF IMPENDING TRANSFER NEEDS AND JUST WAITING ON NOTE FROM PHYSICIAN STATING PT STABLE TO TRANSFER TO FAX TO TRANSFER CENTER
--- NOTE | 2018-12-06 10:20 | NUR ---
REQUESTED MATERIAL FAXED TO TRANSFER CENTER.
--- NOTE | 2018-12-06 12:13 | NUR ---
RECEIVED CONFIRMATION OF ACCEPTANCE TO [facility] FROM TRANSFER CENTER. PT IS BEING ACCEPTED BY DR MCNEIL AND WILL BE GOING TO ROOM 4112 BED 1. REPORT TO BE CALLED TO [phone]
--- NOTE | 2018-12-06 12:17 | CN ---
PATIENT NAME:RUDDY DENTON MEDICAL RECORD: [id number] : 69 LOCATION:DEVIN.2304 ADMIT DATE: 12/01/18 ACCOUNT: [id number] CONSULTING PHYSICIAN: JAMES KENNEDY MD REFERRING PHYSICIAN: TERESA NUÑEZ MD DATE OF CONSULTATION: 12/05/2018 IDENTIFYING DATA: The patient is 53 years old and she is admitted to the hospital secondary to an overdose. CHIEF COMPLAINT: Depression. HISTORY OF PRESENT ILLNESS: The patient was found in a local restaurant slumped across the table. She was brought to the Emergency Room. She was found to have a urine drug screen that is positive for an opiate and amphetamine. She denies having used either of these substances and tells me that she did take a bottle of baclofen. She is evasive about how much she took, but apparently it was significant as she did require ventilator support briefly. She endorses numerous neurovegetative depressive symptoms and is clearly quite confused and unable to even identify the year or the month. ASSESSMENT: 1. Bipolar disorder by history. 2. Status post overdose. 3. Probable polysubstance abuse. PLAN: At this time, the patient is in need of acute inpatient psychiatric care and I recommend she be transferred to an inpatient psychiatric facility once medically stabilized. She should continue with a sitter until that transfer can be arranged. She is willing to go on a voluntary basis at this point. However, if she changes her mind and decides she does not want to go to an inpatient psychiatric facility, I think the circumstances merit an involuntary commitment. TRANSINT:[id number] Voice Confirmation ID: [id number] DOCUMENT ID: [id number] JAMES KENNEDY MD at 1217 CC: [id number] DICTATION DATE: 12/05/18 1621 MOTOR EXPRESS CLERK: 12/05/18 1856 ADM IN [facility] [address] [place] [address]
--- NOTE | 2018-12-06 12:35 | NUR ---
PT AT BEDSIDE. BROUGHT PT CLOTHING
--- NOTE | 2018-12-06 12:55 | NUR ---
REPORT CALLED TO SERAFIN HOLCOMB RN AT [facility].
--- NOTE | 2018-12-06 13:15 | NUR ---
TRANSFER CENTER NOTIFIED OF NEED FOR TRANSPORT
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
--- NOTE | 2018-12-08 09:17 | MORECARE ---
CASE MANAGEMENT DISCHARGE SUMMARY PATIENT: RUDDY DENTON UNIT: [id number] ADM DATE: 12/01/18 AGE: 53 : 69 SEX: F ROOM/BED: D.2304 AUTHOR: ROBINA BARDALES PHYSICIAN: REFERRING PHYSICIAN: TERESA NUÑEZ MD DATE OF SERVICE: 12/08/18 Discharge Plan Patient Name: RUDDY DENTON Facility: [facility]:[place] : 1965 Planned Disposition: Home Anticipated Discharge Date: Discharge Date: 12/06/2018 Expected LOS: Initial Reviewer: [email or web address] Initial Review Date: 12/03/2018 Generated: 12/08/18 10:17 am DCP- Discharge Planning Updated by [email or web address]: Mara Coleman on 12/03/18 4:[address] Patient Name: RUDDY LUDWIG Admission Status: ER Accout number: [id number] Admission Date: 12-01-2018 : 1965 Admission Diagnosis:UNSPECIFIED COMA Attending: TERESA NUÑEZ Current LOS: 2 Anticipated DC Date: Planned Disposition: Home Primary Insurance: MEDICARE A & B Discharge Planning Comments: CM attempted to met with patient to complete initial dc planning assessment. Patient is currently on vent sedated. CM spoke with patient's spouse Oneal. CM educated Oneal on the CM role and verbal consent given by patient to complete assessment. Patient lives at home with her where she is independent with her care. At discharge patient plans to return home and feels this is a safe discharge. Oneal states that the patient has a history of psych issues and has been seen by Dr. Nolasco @ [facility]. CM discussed availability of home health, rehab services, and medical equipment. Family will transport patient home upon discharge. Oneal denied any known discharge needs at this time. CM will continue to follow and will assist as needed with dc plans/needs. Photoengraving Proofer Apprentice: Mara Coleman DCPIA - Discharge Planning Initial Assessment Updated by [email or web address]: Mara Coleman on 12/03/18 5:40 pm * Is the patient Alert and Oriented? No * How many steps to enter\exit or inside your home? 4-20 * PCP NO PCP - PHYSICIAN MOST FAMILAR WITH PATIENT IS DR. NOLASCO @ [facility] * Pharmacy [place] * Preadmission Environment Home with Family * ADLs Independent * Equipment None * List name and contact numbers for known caregivers / representatives who currently or will assist patient after discharge: SHAAN MONET - SPOUSE - [phone] * Community resources currently utilized None * Additional services required to return to the preadmission environment? No * Can the patient safely return to the preadmission environment? Yes * Has this patient been hospitalized within the prior 30 days at any hospital? No Last DP export: 12/03/18 4:49 p Patient Name: RUDDY DENTON Page [phone] at 0917 All edits/amendments must be made on the electronic document DICTATION DATE: 12/08/18916 AUTOMOBILE PARKER: TERI 12/08/18916 RPT#: [id number] DC DATE:12/06/18 STATUS: DIS IN [facility] [address] [place] [address] END OF REPORT
== END 2018-12-06 15:27 | disposition short-term general hospital (02) | DRG 917 ==
LOC: D.ER 22:10 → D.ICU 23:57
PROVIDERS: Family Medicine; ADMIT Family Medicine; ATTEND Family Medicine
PROC: 5A1945Z Respiratory Ventilation, 24-96 Consecutive Hours (ICD-10-PCS; principal; 2018-12-01)
PROC: 0BH17EZ Insertion of Endotracheal Airway into Trachea, Via Natural or Artificial Opening (ICD-10-PCS; 2018-12-01)
DX: T42.8X1A Poisoning by antiparkinsonism drugs and other central muscle-tone depressants, accidental (unintentional), initial encounter (principal); J96.00 Acute respiratory failure, unspecified whether with hypoxia or hypercapnia; G92 Toxic encephalopathy; N39.0 Urinary tract infection, site not specified; E87.6 Hypokalemia; I10 Essential (primary) hypertension; K21.9 Gastro-esophageal reflux disease without esophagitis; F31.9 Bipolar disorder, unspecified; F19.10 Other psychoactive substance abuse, uncomplicated